=== PATIENT | female | born 1965 | race African-American/Black ===

== ENCOUNTER 2017-03-28 16:38 | Emergency (ER) | payer BC, MEDICAID ==
[~2017-03-28] VITALS: Ht 162.6 cm; Wt 80.0 kg
[2017-03-28] MEDS ORDERED: METR-112 (16:49)
[2017-03-28 20:05] VITALS: BP 122/84
[2017-03-28] MEDS ORDERED: LIDOCAINE HCL 1% 20ML VIAL (Pyxis) INJ MC ONE (20:45)
[2017-03-28] MEDS ORDERED: BACITRACIN ZINC OINT UDPKT TOP ONE (20:45)
== END 2017-03-28 22:05 | disposition home or self-care (01) ==
LOC: ER 20:16
DX: S01.81XA Laceration without foreign body of other part of head, initial encounter (principal); Z90.49 Acquired absence of other specified parts of digestive tract; W01.198A Fall on same level from slipping, tripping and stumbling with subsequent striking against other object, initial encounter; Y93.89 Activity, other specified; Y92.018 Other place in single-family (private) house as the place of occurrence of the external cause
CPT/HCPCS: 12013; 99283; J3490; Z7610

== ENCOUNTER 2018-04-23 16:34 | Emergency (ER) | payer BC ==
[~2018-04-23] VITALS: Ht 154.9 cm; Wt 80.0 kg
[~2018-04-23 16:34] MED LIST: METR500T4
[2018-04-23 16:45] VITALS: BP 141/82
== END 2018-04-23 18:33 | disposition left against medical advice (07) ==
LOC: ER 17:03
DX: Z53.21 Procedure and treatment not carried out due to patient leaving prior to being seen by health care provider (principal)

== ENCOUNTER 2021-04-09 15:31 | Inpatient (IN) | payer BC ==
[~2021-04-09] VITALS: Ht 162.6 cm; Wt 80.8 kg
[~2021-04-09 15:31] MED LIST changes: +METR-167; -METR500T4
[2021-04-09] MEDS ORDERED: MORPHINE SULFATE 4 MG/ML CPJ (NOT FOR IM USE) IV STA (16:05)
[2021-04-09] MEDS ORDERED: ONDANSETRON HCL 4MG/2ML INJ IV STA (16:05)
[2021-04-09] MEDS ORDERED: SODIUM CHLORIDE 0.9% 1,000 ML IV ONE ×2 (16:15→18:00)
[2021-04-09 16:48] LABS: BASOPHILS % 0.6 % (0.0-2.0); HEMATOCRIT. 39.9 % (36.0-48.0); HEMOGLOBIN. 13.7 g/dL (12.0-16.0); LYMPHOCYTES % 18.8 % (20.0-50.0); MEAN CORPUSCULAR HEMOGLOBIN 30.4 pg (28.0-32.0); MEAN CORPUSCULAR VOLUME 88.2 fL (81.0-99.0); MEAN PLATELET VOLUME 10.2 fl (7.4-10.4); MONOCYTES % 4.9 % (2.0-8.0); NEUTROPHILS % 75.7 % (40.0-76.0); PLATELET 168 x1000/uL (130-400); RED BLOOD CELL COUNT 4.53 mill/uL (4.2-5.4); RED CELL DISTRIBUTION WIDTH 13.4 % (11.6-14.6)
[2021-04-09 17:05] LABS: CHLORIDE 104 mEq/L (98-107)
[2021-04-09] MEDS ORDERED: ACETAMINOPHEN 325MG TABLET PO NR (17:15)
[2021-04-09] MEDS ORDERED: KETOROLAC 15MG/ML VIAL IV ONE (18:00)
[2021-04-09] MEDS ORDERED: MORPHINE SULFATE 4 MG/ML CPJ (NOT FOR IM USE) IV ONE (18:30)
[2021-04-09] MEDS ORDERED: CLONIDINE 0.1MG TABLET PO PRN (23:30)
[2021-04-09] MEDS ORDERED: NALOXONE HCL 0.4MG/ML VIAL IV PRN (23:30)
[2021-04-09 23:45] VITALS: BP 141/83
[2021-04-10] VITALS: BP 141/83
[2021-04-10] MEDS: ONDANSETRON HCL 4MG/2ML INJ IV PRN ×2 (00:11→08:45)
[2021-04-10] MEDS: HYDROCODONE/ACETAMINOPHEN 5/325MG TABLET PO PRN ×2 (00:13→21:26)
[2021-04-10] MEDS: GUAIFENESIN 200MG/10ML SUGAR FREE UDC PO PRN (00:28)
[2021-04-10] MEDS ORDERED: GABA-529 MT (01:01)
[2021-04-10] MEDS: CEFTRIAXONE 1,000 MG in DEXTROSE 5% WATER 50 ML IV SCH (01:52)
[2021-04-10] MEDS: AZITHROMYCIN 500MG in DEXTROSE 5% WATER 250ML IV SCH (02:31)
[2021-04-10 04:00] VITALS: BP 141/81
[2021-04-10 07:40] LABS: BASOPHILS % 0.4 % (0.0-2.0); HEMATOCRIT. 33.4 % (36.0-48.0); HEMOGLOBIN. 11.2 g/dL (12.0-16.0); MEAN CORPUSCULAR HEMOGLOBIN 29.7 pg (28.0-32.0); MEAN CORPUSCULAR VOLUME 88.4 fL (81.0-99.0); MEAN PLATELET VOLUME 10.4 fl (7.4-10.4); MONOCYTES % 4.9 % (2.0-8.0); NEUTROPHILS % 70.7 % (40.0-76.0); PLATELET 141 x1000/uL (130-400); RED BLOOD CELL COUNT 3.78 mill/uL (4.2-5.4); RED CELL DISTRIBUTION WIDTH 13.2 % (11.6-14.6)
[2021-04-10] MEDS: PANTOPRAZOLE 40MG DR TABLET PO SCH (07:40)
[2021-04-10 07:55] LABS: CHLORIDE 104 mEq/L (98-107)
[2021-04-10 08:00] VITALS: BP 110/59
[2021-04-10] MEDS: DEXAMETHASONE 4MG/ML 1ML VIAL IV SCH (08:10)
[2021-04-10] MEDS: ENOXAPARIN 40MG/0.4ML SYR SUBCUT SCH (08:11)
[2021-04-10] MEDS: ACETAMINOPHEN 650MG/20.3ML UDC PO PRN (09:43)
[2021-04-10 12:00] VITALS: BP 107/57
[2021-04-10 16:00] VITALS: BP 92/52
[2021-04-10 20:00] VITALS: BP 125/72
[2021-04-11] VITALS: BP 100/56
[2021-04-11] MEDS: CEFTRIAXONE 1,000 MG in DEXTROSE 5% WATER 50 ML IV SCH (00:12)
[2021-04-11] MEDS: ACETAMINOPHEN 650MG/20.3ML UDC PO PRN (00:27)
[2021-04-11] MEDS: HYDROCODONE/ACETAMINOPHEN 5/325MG TABLET PO PRN (03:38)
[2021-04-11 04:00] VITALS: BP 114/63
[2021-04-11] MEDS: PANTOPRAZOLE 40MG DR TABLET PO SCH (06:40)
[2021-04-11 07:46] LABS: BASOPHILS % 0.1 % (0.0-2.0); CHLORIDE 103 mEq/L (98-107); HEMATOCRIT. 32.6 % (36.0-48.0); HEMOGLOBIN. 11.2 g/dL (12.0-16.0); LYMPHOCYTES % 10.4 % (20.0-50.0); MEAN CORPUSCULAR VOLUME 87.4 fL (81.0-99.0); MEAN PLATELET VOLUME 9.8 fl (7.4-10.4); MONOCYTES % 2.7 % (2.0-8.0); NEUTROPHILS % 86.8 % (40.0-76.0); PLATELET 174 x1000/uL (130-400); RED BLOOD CELL COUNT 3.73 mill/uL (4.2-5.4); RED CELL DISTRIBUTION WIDTH 13.1 % (11.6-14.6)
[2021-04-11 08:00] VITALS: BP 114/73
[2021-04-11] MEDS: ENOXAPARIN 40MG/0.4ML SYR SUBCUT SCH (09:42)
[2021-04-11] MEDS: DEXAMETHASONE 4MG/ML 1ML VIAL IV SCH (09:42)
[2021-04-11] MEDS: AZITHROMYCIN 500MG in DEXTROSE 5% WATER 250ML IV SCH (09:42)
[2021-04-11 12:00] VITALS: BP 122/76
[2021-04-11] MEDS: GUAIFENESIN 200MG/10ML SUGAR FREE UDC PO PRN ×2 (12:03→22:59)
[2021-04-11 16:00] VITALS: BP 115/65
[2021-04-11] MEDS: ONDANSETRON HCL 4MG/2ML INJ IV PRN ×2 (16:49→22:59)
[2021-04-11 20:00] VITALS: BP 117/69
[2021-04-12] VITALS: BP 121/71
[2021-04-12] MEDS: CEFTRIAXONE 1,000 MG in DEXTROSE 5% WATER 50 ML IV SCH (01:38)
[2021-04-12 04:00] VITALS: BP 118/77
[2021-04-12] MEDS: GUAIFENESIN 200MG/10ML SUGAR FREE UDC PO PRN ×2 (06:42→10:44)
[2021-04-12 07:08] LABS: BASOPHILS % 0.7 % (0.0-2.0); HEMATOCRIT. 34.6 % (36.0-48.0); HEMOGLOBIN. 11.7 g/dL (12.0-16.0); LYMPHOCYTES % 14.5 % (20.0-50.0); MEAN CORPUSCULAR HEMOGLOBIN 29.6 pg (28.0-32.0); MEAN CORPUSCULAR VOLUME 87.5 fL (81.0-99.0); MEAN PLATELET VOLUME 9.8 fl (7.4-10.4); MONOCYTES % 5.6 % (2.0-8.0); NEUTROPHILS % 79.2 % (40.0-76.0); PLATELET 224 x1000/uL (130-400); RED BLOOD CELL COUNT 3.95 mill/uL (4.2-5.4); RED CELL DISTRIBUTION WIDTH 13.2 % (11.6-14.6)
[2021-04-12 07:48] LABS: CHLORIDE 102 mEq/L (98-107)
[2021-04-12 08:00] VITALS: BP 115/66
[2021-04-12] MEDS: ENOXAPARIN 40MG/0.4ML SYR SUBCUT SCH (08:11)
[2021-04-12] MEDS: PANTOPRAZOLE 40MG DR TABLET PO SCH (08:11)
[2021-04-12] MEDS: AZITHROMYCIN 500MG in DEXTROSE 5% WATER 250ML IV SCH (08:11)
[2021-04-12] MEDS: DEXAMETHASONE 4MG/ML 1ML VIAL IV SCH (08:11)
[2021-04-12] MEDS ORDERED: DEXA6TAB MT (11:43)
[2021-04-12] MEDS ORDERED: DEXTL PO (11:43)
[2021-04-12] MEDS ORDERED: ONDA4TAB11 PO (11:43)
[2021-04-12 11:53] VITALS: BP 118/62
[2021-04-12 12:00] VITALS: BP 116/72
[2021-04-13] MEDS ORDERED: FAMOTIDINE 20MG TABLET PO SCH (09:00)
== END 2021-04-12 13:06 | disposition home or self-care (01) | DRG 871 ==
LOC: ER 15:31 → 7WST 17:31 → ENRESERV 22:27
PROVIDERS: ADMIT Internal Medicine; ATTEND Internal Medicine
DX: A41.89 Other specified sepsis (principal); U07.1 COVID-19; J96.00 Acute respiratory failure, unspecified whether with hypoxia or hypercapnia; J12.82 Pneumonia due to coronavirus disease 2019; D64.9 Anemia, unspecified; E78.00 Pure hypercholesterolemia, unspecified; E78.5 Hyperlipidemia, unspecified; J45.909 Unspecified asthma, uncomplicated; M79.7 Fibromyalgia; R74.01 Elevation of levels of liver transaminase levels; Z90.49 Acquired absence of other specified parts of digestive tract; Z98.891 History of uterine scar from previous surgery
CPT/HCPCS: 36415; 71045; 80048; 80053; 80061; 82728; 83036; 83615; 84145; 84443; 85025; 85379; 86140; 87426; 99285; J0456; J0696; J1100; J1650; J2270; J2405; J7030; J7040; J7060; U0003; U0005